=== PATIENT | female | born 1940 | race Caucasian/White ===

== ENCOUNTER 2019-07-04 15:49 | Emergency (ER) | payer MEDICARE, OTHER, SELFPAY ==
[2019-07-04] VITALS (7 sets, daily range): BP systolic 144–156; BP diastolic 67–71; PULSE 112–123; RESP 24–28; TEMP 37.4; O2SAT 94–98
--- NOTE | ~2019-07-04 | XR_ITS ---
XR chest 1V portable 07/04/2019 16:33 Indication: Shortness of breath. COPD. Procedure: AP portable chest Comparison: Comparison to multiple prior studies sequentially, with oldest reviewed study dated 09/10. Findings: Shallow inspiration. Cardiomegaly with interstitial edema. No pleural effusion or pneumotho rax. No acute osseous abnormality. Impression: 1: Cardiomegaly with interstitial edema. Reviewed, dictated and finalized at location A. ECTIONAL FACILITY PSYCHIATRIST Impression: 1: Cardiomegaly with interstitial edema.
--- NOTE | 2019-07-04 16:04 | ECG_ITS ---
Measurements Intervals [place] Rate: 121 P: 63 DC: 152 QRS: 20 QRSD: 135 T: 135 QT: 332 QTc: 473 Interpretive Statements SINUS TACHYCARDIA LEFT BUNDLE BRANCH BLOCK BASELINE ARTIFACT- I, II, III, AVR, AVL, AVF ABNORMAL ECG Electronically Signed On 07-05-2019 8:09:49 DIGITAL CARTOGRAPHIC TECHNICIAN by Humphrey Cobb D.O.
--- NOTE | 2019-07-04 16:07 | ED.SOB ---
HPI - SOB/Dyspnea General Chief Complaint: Shortness of Breath/Dyspnea Stated Complaint: Ambulance Time Seen by Provider: 07/04/19 15:50 Source: patient, EMS and RN notes reviewed Mode of arrival: EMS History of Present Illness HPI Narrative: Karley is a 78-year-old female patient. She is a resident at the local half[facility]way. She is brought to the emergency room from the half-way by ambulance. She has had shortness of breath today.Dr Raymond had ordered a nebulizer treatment on her. She received that and then she was sent over to the emergency room. She denies any chest pain. There is no history of fever. She has history of COPD. 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 She denies history of DC. She has history of diabetes. She has history of hypertension. She has had a cholecystectomy and appendectomy. She has had right forearm surgery for fracture. This got infected and she had to have skin graft done. There is no history of abdominal pain. No history of nausea or vomiting. No history of diarrhea. at night uses a BiPAP machine at the half-way. MD elicited complaint: shortness of breath, cough and chest pain Pertinent past history: COPD and diabetes Onset (ago): hour(s) ( Since this morning) Context: other ( no history of fever. Has history of COPD and pneumonectomy.) Timing: constant Severity: moderate Exacerbating factors: exertion Relieving factors: oxygen Known history of: COPD and other ( Pneumonectomy for histoplasmosis at [facility] in 1975) Associated symptoms: wheezing and other ( no chest pain) Treatment prior to arrival: oxygen and bronchodilator Related Data Home Medications Medication Instructions Recorded Confirmed [id number] calcium-B6 1 tablet PO DAILY 07/04/19 07/04/19 [Folbic RF] acetaminophen 650 mg PO Q4H PRN 07/04/19 07/04/19 alum-mag hydroxide-simeth [Maalox 10 ml PO Q4H PRN 07/04/19 07/04/19 Advanced] aspirin [Adult Aspirin Regimen] 81 mg PO DAILY 07/04/19 07/04/19 atorvastatin 20 mg PO HS 07/04/19 07/04/19 azithromycin 250 mg PO DAILY 07/04/19 07/04/19 bisacodyl 10 mg UT DAILY PRN 07/04/19 07/04/19 budesonide 2 ml INHALATION BID 07/04/19 07/04/19 cholecalciferol (vitamin D3) 1,000 unit PO QAM 07/04/19 07/04/19 duloxetine 90 mg PO DAILY 07/04/19 07/04/19 fluticasone propion-salmeterol 1 inh INHALATION BID 07/04/19 07/04/19 [Advair Diskus] furosemide [Lasix] 40 mg PO TID 07/04/19 07/04/19 gabapentin 300 mg PO BID 07/04/19 07/04/19 hydrocodone-acetaminophen 1 tablet PO BID 07/04/19 07/04/19 hydrocodone-acetaminophen 1 tablet PO Q4H PRN 07/04/19 07/04/19 insulin aspart U-100 [Novolog 20 unit SUBCUT 07/04/19 07/04/19 Flexpen U-100 Insulin] insulin glargine [Basaglar KwikPen 80 unit SUBCUT 07/04/19 07/04/19 U-100 Insulin] ipratropium-albuterol 3 ml INHALATION Q4H 07/04/19 07/04/19 ipratropium-albuterol 3 ml INHALATION Q6H PRN 07/04/19 07/04/19 ipratropium-albuterol [Combivent 1 puff INHALATION Q6H PRN 07/04/19 07/04/19 Respimat] ipratropium-albuterol [Combivent 1 puff INHALATION QID 07/04/19 07/04/19 Respimat] isosorbide mononitrate 30 mg PO DAILY 07/04/19 07/04/19 latanoprost 1 drp OPHTHALMIC (EYE) HS 07/04/19 07/04/19 levothyroxine 175 mcg PO DAILY 07/04/19 07/04/19 lorazepam 0.5 mg PO BID 07/04/19 07/04/19 melatonin 3 mg PO HS PRN 07/04/19 07/04/19 memantine [Namenda] 5 mg PO BID 07/04/19 07/04/19 menthol [[place] Cough Drops] 7.6 mg MUCOUS MEMBRANE Q2H PRN 07/04/19 07/04/19 montelukast 10 mg PO DAILY 07/04/19 07/04/19 ev-jq-WU-vit L-athxg-etg-coQ10 1 cap PO DAILY 07/04/19 07/04/19 [Daily Multivitamin] ondansetron 4 mg PO Q8H PRN 07/04/19 07/04/19 peg 400-propylene glycol [Systane 1 drp OPHTHALMIC (EYE) BID PRN 07/04/19 07/04/19 Ultra] potassium chloride 20 meq PO DAILY 07/04/19 07/04/19 sennosides-docusate sodium [Senna 1 tab-cap PO DAILY 07/04/19 07/04/19 Plus] tramadol 50 mg PO Q6H PRN
[2019-07-04] MEDS: IPRATROPIUM 0.5 MG/ALBUTEROL SULFATE 2.5 MG AMPUL.NEB 3 ML INHALATION ×2 (16:15→18:17)
[2019-07-04] MEDS: methylPREDNISolone SOD SUCC 125 MG VIAL 60 MG IV PUSH (16:17)
[2019-07-04 16:37] LABS: Basophils Absolute Auto 0.01 K/mm3 (0.00-0.10); Basophils Percent Auto 0.1 % (0.0-1.0); Eosinophils Absolute Auto 0.13 K/mm3 (0.02-0.50); Hematocrit 39.5 % (35.0-42.0); Hemoglobin 12.4 g/dL (11.7-13.8); Immature Granulocyte Absolute 0.04 K/mm3 (0.00-0.00); Immature Granulocyte Percent A 0.3 % (0.0-0.0); Lymphocytes Absolute Auto 1.38 K/mm3 (1.10-4.50); Mean Corpuscular HGB Conc 31.4 g/dL (32.0-36.0); Mean Corpuscular Volume 95.6 fL (78.0-102.0); Mean Platelet Volume 11.7 fl (9.2-11.8); Monocytes Absolute Auto 0.74 K/mm3 (0.10-0.90); Monocytes Percent Auto 5.9 % (2.0-11.0); Neutrophils Absolute Auto 10.2 K/mm3 (1.7-7.2); Neutrophils Percent Auto 81.7 % (50.0-70.0); Platelet Count Result 150 K/mm3 (150-420); Red Blood Count 4.13 M/mm3 (4.20-5.40); Red Cell Distribution Width 13.9 % (11.6-14.4); White Blood Count 12.5 K/mm3 (4.8-10.8)
[2019-07-04 16:49] LABS: Alanine Aminotransferase 32 U/L (14-59); Albumin Level 3.1 g/dL (3.4-5.0); Alkaline Phosphatase 134 U/L (46-116); Anion Gap 10.1 mmol/L (7-16); Aspartate Amino Transferase 26 U/L (15-37); Bilirubin,Total 0.4 mg/dL (0.00-1.00); Blood Urea Nitrogen 21 mg/dL (7-18); Calcium 9.5 mg/dL (8.5-10.1); Carbon Dioxide 34 mmol/L (21-32); Chloride 104 mmol/L (98-108); Estimated CRCL calculation 47 ml/min; Estimated Glomerular Filt Rate 43; Glucose 247 mg/dL (70-99); Osmolality Calculated 309 mOsm/kg (285-295); Potassium 4.1 mmol/L (3.5-5.1); Sodium 144 mmol/L (136-145); Total Protein 7.2 g/dL (6.4-8.2)
[2019-07-04 16:51] LABS: Partial Thromboplastin Time 28.6 SEC (22.3-31.6); Prothrombin Time 10.2 Seconds (9.64-11.0)
[2019-07-04 16:52] LABS: D Dimer 0.99 mg/L (0.19-0.50)
[2019-07-04 17:00] LABS: BNP 14.4 pg/mL (0-100)
--- NOTE | 2019-07-04 17:17 | PC.NURSE ---
Dr. Massey in speaking with pt and pts family
--- NOTE | 2019-07-04 17:36 | PC.NURSE ---
Pt resting on stretcher, son at bedside.
[2019-07-04] MEDS: ENOXAPARIN 100 MG/ML SYRINGE 120 MG SUB-Q (18:13)
--- NOTE | 2019-07-04 18:55 | PC.NURSE ---
Pt [facility] in [facility] from the [facility] with rosalio lift. Pt taken back to prison via wheelchair and prison staff.
--- NOTE | 2019-07-05 11:54 | PC.NURSE ---
Appointment for pts v/q scan scheduled for tomorrow at 0800 and to have pt arrive at 0700. group home contacted. spoke with Li to make aware of time for test.
== END 2019-07-04 18:55 ==
PROVIDERS: Emergency Provider Surgery; PCP Family Medicine
DX: J44.9 Chronic obstructive pulmonary disease, unspecified (principal); R79.1 Abnormal coagulation profile
CPT/HCPCS: 36415; 36600; 71045; 80053; 83735; 83880; 85025; 85380; 85610; 85730; 87040; 93005; 96372; 96374; 99284; J1650; J2930

== ENCOUNTER 2019-07-06 06:57 | Outpatient (CLI) | payer MEDICARE, OTHER, SELFPAY | END 2019-07-06 06:58 | disposition home or self-care (01) | PROVIDERS: PCP Family Medicine; Visit Provider Family Medicine | DX: Z53.8 Procedure and treatment not carried out for other reasons (principal) | CPT/HCPCS: 99199 ==

== ENCOUNTER 2019-07-06 15:44 | Outpatient (CLI) | payer MEDICARE, OTHER, SELFPAY ==
--- NOTE | ~2019-07-06 | NM_ITS ---
EXAMINATION: NM lung vent and perfusion DATE: 07/06/2019 17:56 INDICATION: Shortness of breath. Chest pain. TECHNIQUE: 25 mCi xenon-133 by inhalation and 4.5 mCi Tc-99m MAA by intravenous route. Scintigraphic images of the chest were obtained. COMPARISON: Chest radiograph dated 07/06/2019 FINDINGS: There is asymmetric decreased radiotracer uptake in the right lung relative to the left on the ventil ation images. There is mild bilateral retention of radiotracer activity consistent with at least mild obstructive pulmonary disease. Identical pattern of diffuse mildly reduced activity throughout the r ight lung relative to the left on the perfusion images. Subtle small perfusion defect at the lateral right lower lung zone corresponding to a small radiographic opacity on the chest radiograph. Images o n the ventilation portion of the study or to noise 2 assess whether there is a similar subtle matched ventilation defect. No other perfusion defects appreciated. IMPRESSION: 1. Intermediate probability for pulmonary embolism with single small matched perfusion defect in the right lung corresponding to a radiographic opacity. Reviewed, dictated and finalized at location A. MACEUTICAL PHYSICIAN IMPRESSION: 1. Intermediate probability for pulmonary embolism with single small matched p erfusion defect in the right lung corresponding to a radiographic opacity.
--- NOTE | ~2019-07-06 | XR_ITS ---
XR chest 1V DATE: 07/06/2019 16:39 INDICATION: Chest pain, shortness of breath. Elevated d-dimer. TECHNIQUE: AP chest COMPARISON: 07/04/2019 portable AP chest FINDINGS: Elevated right diaphragm is again noted. There is infiltrate and/atelectasis in the lower l vadim zones bilaterally. Cardiomegaly. Aortic calcification. Very prominent diffuse osteopenia. IMPRESSION: Cardiomegaly Bibasilar infiltrate and/atelectasis Severe osteopenia Reviewed, dictated and finalized at location B. NGUAL MANAGER
== END 2019-07-06 15:45 | disposition home or self-care (01) ==
PROVIDERS: PCP Family Medicine; Visit Provider Family Medicine
DX: R06.02 Shortness of breath (principal); R91.8 Other nonspecific abnormal finding of lung field; I51.7 Cardiomegaly; M85.88 Other specified disorders of bone density and structure, other site
CPT/HCPCS: 71045; 78582; A9540; A9558

== ENCOUNTER 2019-07-17 19:57 | Inpatient (IN) | payer MEDICARE, OTHER, SELFPAY ==
--- NOTE | ~2019-07-17 | XR_ITS ---
EXAMINATION: XR chest 1V portable INDICATION: Shortness of breath and cough TECHNIQUE: Portable AP chest at 2018 hours COMPARISON: 07/06/2019 FINDINGS: There is elevation of the right hemidiaphragm. Scarring or atelectasis is seen in the right midlung zone. The lungs are free of acute opacities. No pleural effusion or pneumothorax is identifi ed. The cardiomediastinal silhouette is stable. IMPRESSION: 1. No acute cardiopulmonary abnormality. Reviewed, dictated and finalized at location A. ECTOR MOTOR VEHICLES
[2019-07-17 19:57] VITALS: BP 156/81; PULSE 125; RESP 32; TEMP 38.2; O2SAT 98
--- NOTE | 2019-07-17 20:10 | ED.SOB ---
HPI - SOB/Dyspnea General Chief Complaint: Shortness of Breath/Dyspnea Stated Complaint: amb History of Present Illness HPI Narrative: This 78-year-old resident of [facility] has diabetes, morbid obesity and COPD. Staff relay a hx of acute shortness of breath and occasional cough which starated several hours ago, treated with albuterol nebulizer. (Son states she actually had some SOB last PM). She was noted to have wheezing on exam, warm with a pulse of 120 and pulse ox 95% 95% on 4 L. She had dyspnea 13 days ago associated with a D-dimer 0f 0.99 tx with anticoags until diagnostic study was performed; V/Q scan which showed intermediate probability of PE. She was taken off of anticoagulants but kept on azithromycin. Her son states she is considered to be in palliative care, with DNR documented. She takes Lasix 40 mg TID. There is no hx of CHF; 07/04/2019 BNP less than 20. Because of his dyspnea and decreased LOC she had difficulty answering questions. Related Data Home Medications Medication Instructions Recorded Confirmed [id number] calcium-B6 1 tablet PO DAILY 07/04/19 07/17/19 [Folbic RF] acetaminophen 650 mg PO Q4H PRN 07/04/19 07/17/19 alum-mag hydroxide-simeth [Maalox 10 ml PO Q4H PRN 07/04/19 07/17/19 Advanced] aspirin [Adult Aspirin Regimen] 81 mg PO DAILY 07/04/19 07/17/19 atorvastatin 20 mg PO HS 07/04/19 07/17/19 bisacodyl 10 mg IN DAILY PRN 07/04/19 07/17/19 budesonide 2 ml INHALATION BID 07/04/19 07/17/19 cholecalciferol (vitamin D3) 1,000 unit PO QAM 07/04/19 07/17/19 duloxetine 90 mg PO DAILY 07/04/19 07/17/19 fluticasone propion-salmeterol 1 inh INHALATION BID 07/04/19 07/17/19 [Advair Diskus] furosemide [Lasix] 40 mg PO TID 07/04/19 07/17/19 gabapentin 300 mg PO BID 07/04/19 07/17/19 hydrocodone-acetaminophen 1 tablet PO BID 07/04/19 07/17/19 hydrocodone-acetaminophen 1 tablet PO Q4H PRN 07/04/19 07/17/19 insulin aspart U-100 [Novolog 20 unit SUBCUT AC 07/04/19 07/17/19 Flexpen U-100 Insulin] insulin glargine [Basaglar KwikPen 80 unit SUBCUT HS 07/04/19 07/17/19 U-100 Insulin] ipratropium-albuterol 3 ml INHALATION Q6H PRN 07/04/19 07/17/19 ipratropium-albuterol 3 ml INHALATION QID 07/04/19 07/17/19 ipratropium-albuterol [Combivent 1 puff INHALATION Q6H PRN 07/04/19 07/17/19 Respimat] ipratropium-albuterol [Combivent 1 puff INHALATION QID 07/04/19 07/17/19 Respimat] isosorbide mononitrate 30 mg PO DAILY 07/04/19 07/17/19 latanoprost 1 drp OPHTHALMIC (EYE) HS 07/04/19 07/17/19 levothyroxine 175 mcg PO DAILY 07/04/19 07/17/19 lorazepam 0.5 mg PO BID 07/04/19 07/17/19 melatonin 3 mg PO HS PRN 07/04/19 07/17/19 memantine [Namenda] 5 mg PO BID 07/04/19 07/17/19 menthol [[place] Cough Drops] 7.6 mg MUCOUS MEMBRANE Q2H PRN 07/04/19 07/17/19 montelukast 10 mg PO DAILY 07/04/19 07/17/19 yv-sl-GS-vit V-cprbm-oot-coQ10 1 cap PO DAILY 07/04/19 07/17/19 [Daily Multivitamin] ondansetron 4 mg PO Q8H PRN 07/04/19 07/17/19 peg 400-propylene glycol [Systane 1 drp OPHTHALMIC (EYE) BID PRN 07/04/19 07/17/19 Ultra] potassium chloride 20 meq PO DAILY 07/04/19 07/17/19 sennosides-docusate sodium [Senna 1 tab-cap PO DAILY 07/04/19 07/17/19 Plus] tramadol 50 mg PO Q6H PRN 07/04/19 07/17/19 umeclidinium [Incruse Ellipta] 62.5 mcg INHALATION DAILY 07/04/19 07/17/19 [id number] calcium-B6 1 tablet PO DAILY 07/17/19 07/17/19 [Folbic RF] peg 400-propylene glycol (PF) 1 drp OPHTHALMIC (EYE) BID 07/17/19 07/17/19 [Systane Ultra (PF)] Allergies Allergy/AdvReac Type Severity Reaction Status Date / Time iodine Allergy Unknown Unknown Verified 07/04/19 16:09 losartan Allergy Unknown Unknown Verified 07/04/19 16:09 shrimp Allergy Unknown Verified 07/04/19 16:09 Contrast Media Allergy Unknown Uncoded 07/04/19 16:09 Mushroom Allergy Unknown Uncoded 07/04/19 16:09 Review of Systems Review of Systems: Narrative: Unable to obtain ROS because of depressed mental status. ROS unob
[2019-07-17] MEDS: IPRATROPIUM 0.5 MG/ALBUTEROL SULFATE 2.5 MG AMPUL.NEB 3 ML INHALATION ×2 (20:30→21:03)
[2019-07-17] MEDS: methylPREDNISolone SOD SUCC 40 MG VIAL 80 MG IV PUSH (20:40)
[2019-07-17 20:45] VITALS: BP 138/78; PULSE 125; RESP 26; O2SAT 100
[2019-07-17 20:52] LABS: Basophils Absolute Auto 0.02 K/mm3 (0.00-0.10); Basophils Percent Auto 0.2 % (0.0-1.0); Eosinophils Absolute Auto 0.05 K/mm3 (0.02-0.50); Eosinophils Percent Auto 0.5 % (1.0-6.0); Hematocrit 37.4 % (35.0-42.0); Hemoglobin 11.6 g/dL (11.7-13.8); Immature Granulocyte Absolute 0.06 K/mm3 (0.00-0.00); Immature Granulocyte Percent A 0.7 % (0.0-0.0); Lymphocytes Absolute Auto 0.43 K/mm3 (1.10-4.50); Lymphocytes Percent Auto 4.7 % (18.0-42.0); Mean Corpuscular Hemoglobin 29.7 pg (27.0-31.0); Mean Corpuscular Volume 95.7 fL (78.0-102.0); Mean Platelet Volume 11.5 fl (9.2-11.8); Monocytes Absolute Auto 0.53 K/mm3 (0.10-0.90); Monocytes Percent Auto 5.7 % (2.0-11.0); Neutrophils Absolute Auto 8.1 K/mm3 (1.7-7.2); Neutrophils Percent Auto 88.2 % (50.0-70.0); Platelet Count Result 150 K/mm3 (150-420); Red Blood Count 3.91 M/mm3 (4.20-5.40); Red Cell Distribution Width 14.1 % (11.6-14.4); White Blood Count 9.2 K/mm3 (4.8-10.8)
--- NOTE | 2019-07-17 20:53 | ECG_ITS ---
Measurements Intervals [place] Rate: 125 P: 57 [place]: 135 QRS: 10 QRSD: 141 T: 144 QT: 326 QTc: 470 Interpretive Statements SINUS TACHYCARDIA LEFT BUNDLE BRANCH BLOCK BASELINE ARTIFACT- I, II, III, AVR, AVL, AVF, V4-V6 ABNORMAL ECG COMPARED TO ECG 07/04/2019 16:25:05 NO SIGNIFICANT CHANGES Electronically Signed On 07-18-2019 11:35:06 AUTOMATED TELLER MANAGER by Humphrey Cobb D.O.
[2019-07-17 21:09] LABS: Alanine Aminotransferase 34 U/L (14-59); Albumin Level 3.5 g/dL (3.4-5.0); Alkaline Phosphatase 145 U/L (46-116); Anion Gap 10.4 mmol/L (7-16); Aspartate Amino Transferase 21 U/L (15-37); Bilirubin,Total 0.3 mg/dL (0.00-1.00); Blood Urea Nitrogen 23 mg/dL (7-18); Calcium 9.3 mg/dL (8.5-10.1); Carbon Dioxide 37 mmol/L (21-32); Chloride 104 mmol/L (98-108); Estimated Glomerular Filt Rate 44; Glucose 229 mg/dL (70-99); Osmolality Calculated 314 mOsm/kg (285-295); Potassium 4.4 mmol/L (3.5-5.1); Sodium 147 mmol/L (136-145); Total Protein 6.6 g/dL (6.4-8.2)
[2019-07-17 21:13] LABS: Lactic Acid 1.6 mmol/L (0.4-2.0)
[2019-07-17 21:20] LABS: BNP 20.4 pg/mL (0-100)
[2019-07-17 21:30] VITALS: BP 152/77; PULSE 127; RESP 32; O2SAT 98
[2019-07-17 21:35] LABS: Troponin I < 0.02 ng/mL (0.00-0.056)
[2019-07-17 21:58] LABS: D Dimer 1.69 mg/L (0.19-0.50)
[2019-07-17 22:05] LABS: Influenza Control Valid (Valid)
[2019-07-17] MEDS: ALBUTEROL SULFATE NEB 2.5 MG/3 ML INH INHALATION (22:13)
[2019-07-17 22:26] LABS: HCO3 VBG 31.9 mEq/l (24.0-30.0); PCO2 VBG 62.7 mmHg (42.0-48.0); PO2 VBG 40.4 mmHg (35.0-45.0); pH VBG 7.33 (7.33-7.43)
[2019-07-17 22:27] LABS: Device NASAL CANNULA
[2019-07-17 22:30] VITALS: BP 151/81; PULSE 126; RESP 32; O2SAT 98
--- NOTE | 2019-07-17 22:47 | PC.NURSE ---
Son returned from [place] with pt's C-pap machine per Dr Sanchez request.
[2019-07-17 23:04] VITALS: BP 151/80; PULSE 124; RESP 32; O2SAT 97
[2019-07-18] VITALS (12 sets, daily range): BP systolic 122–150; BP diastolic 55–67; PULSE 77–114; RESP 20–28; TEMP 35.5–36.4; O2SAT 90–95; BMI 47.0
[2019-07-18] MEDS: SODIUM CHLORIDE 0.9% IV 1,000 ML 100 ML IV CONT (01:07)
[2019-07-18] MEDS: OSELTAMIVIR PHOSPHATE 75 MG CAP PO ×2 (01:16→10:15)
--- NOTE | 2019-07-18 01:17 | PC.NURSE ---
`1/2 given per order, Tamiflu.
[2019-07-18] MEDS: IPRATROPIUM 0.5 MG/ALBUTEROL SULFATE 2.5 MG AMPUL.NEB 3 ML INHALATION ×4 (02:03→18:07)
[2019-07-18] MEDS: methylPREDNISolone SOD SUCC 125 MG VIAL 80 MG IV PUSH (04:17)
[2019-07-18] MEDS: levoFLOXacin 500 MG/D5W 100 ML 500 MG/100 ML BAG 100 MG IVPB (04:26)
--- NOTE | 2019-07-18 05:40 | PC.NURSE ---
0330 [facility] pharmacy called and made recommendations that pt's levaquin order be changed to every 48 hrs instead of every 24 hrs due to kidney function. Attempted to talk to Dr. Sanchez but he was with a patient. Message left with [employer].
--- NOTE | 2019-07-18 06:21 | PC.NURSE ---
1369 Dr. Sanchez notified of tamiflu being unavailable in the 30 mg dose. He requested that we talk to pharmacy for their recommendations.
[2019-07-18] MEDS: LEVOTHYROXINE SODIUM 100 MCG TABLET 175 MCG PO (06:23)
--- NOTE | 2019-07-18 06:27 | PC.NURSE ---
175mcg po of Levothyroxine given @ this time order.
--- NOTE | 2019-07-18 06:40 | PC.NURSE ---
0005 [facility] notified of unavailability of tamiflu 30 mg. Pharmacist said tamiflu 75 mg capsule can be opened to give 1/2 dose.
[2019-07-18 07:23] LABS: Glucose Point of Care 344 (65-105)
--- NOTE | 2019-07-18 08:03 | PC.NURSE ---
Oriented to self, re orirented to hospital surrounding, cpap remains in place on 4L, states is feeling better, no audible wheezing noted, no use of right arm due to previous fx elbow, does state feeling better,
[2019-07-18] MEDS: BUDESONIDE RESPULE NEB 0.5 MG/2 ML AMP 1 MG INHALATION (09:11)
[2019-07-18] MEDS: SALMET XINAFT/FLUTIC PROPIN 250 MCG/50 MCG INH CAP 1 PUFF INHALATION ×2 (09:51→17:01)
[2019-07-18] MEDS: ENOXAPARIN 40 MG/0.4 ML SYRINGE SUB-Q (09:52)
[2019-07-18] MEDS: CHOLECALCIFEROL 1,000 UNIT TABLET 1000 UNITS PO (09:53)
[2019-07-18] MEDS: BENZONATATE 100 MG CAPSULE 200 MG PO ×3 (09:53→17:00)
[2019-07-18] MEDS: DULOXETINE HCL 30 MG CAPSULE.DR 90 MG PO (09:55)
[2019-07-18] MEDS: MONTELUKAST SODIUM 10 MG TABLET PO (09:57)
[2019-07-18] MEDS: FUROSEMIDE 40 MG TABLET PO ×2 (09:57→17:02)
[2019-07-18] MEDS: LORAZEPAM 0.5 MG TABLET PO ×2 (09:57→17:02)
[2019-07-18] MEDS: THERAPEUTIC MULTIVITAMINS/MINERALS TAB (*BKC) 1 TABLET PO (09:57)
[2019-07-18] MEDS: MEMANTINE 5 MG TABLET PO ×2 (09:57→17:02)
[2019-07-18] MEDS: ASPIRIN 81 MG ENTERIC TABLET PO (09:58)
[2019-07-18] MEDS: GABAPENTIN 300 MG CAPSULE PO ×2 (09:58→17:02)
[2019-07-18] MEDS: POTASSIUM CHLORIDE 20 MEQ TABLET PO (09:58)
[2019-07-18] MEDS: SENNA/DOCUSATE SODIUM TABLET 1 TAB PO (10:13)
--- NOTE | 2019-07-18 10:23 | PC.NURSE ---
Placed on 4L NC while taking medication, takes in applesauce and tolerated well, repositioned to back for meds, placed cpap back on patient after meds taken, tolerated well, takes fluids as offerred
--- NOTE | 2019-07-18 11:07 | PM.IMHP ---
H&P: HPI History of Present Illness Chief complaint: amb Narrative: Karley Kong is a 78 year old female resides at the [facility]. patient was admitted overnight for shortness of breath and dyspnea. Patient past medical history hypertension right forearm fracture diabetes to, COPD pulmonary fibrosis, peripheral edema according to son he believes that she has been diagnosed with congestive heart failure but cannot recall when the last echo was completed. Patient is palliative care he does not care to complete of echo to determine the status of her congestive heart failure. According to her son he was notified by staff the patient shortness of breath had increasing And worsened he also noted that it appeared that she had a bit of confusion yesterday. He also informed me that she has a history of UTIs, which causes her to be confused. she does have a history of chronic shortness of breath. she is being admitted for influenza A. and COPD exacerbation. Due to her GFR she will be given 30 mg of Tamiflu b.i.d.. she will also receive antibiotics and steroid due to her history of COPD. While in the ED a chest x-ray was completed results unremarkable, EKG shows sinus tach heart rate in 121. she also had an elevated D-dimer. According to son iin the past her D-dimer has been elevated.due to her allergic reaction to dyes she had a V/Q scan completed On July 06, 2019 and it indicated Intermediate probability for pulmonary embolism with single small matched perfusion defect in the right lung corresponding to a radiographic opacity. According to her son her PCP noted that she no longer needed to be on Lovenox. I will contact Dr. Wade on Saturday to update him on patient's status and obtain more information. Her son did decline another V/Q scan and asked that I contact Dr. Wade for his opinion. she will continue antibiotics, Solu-Medrol , and treatment and tamiflo. Patient able to tolerate all meals , slept well . Patient denies SOB, CP, palpitation, extremity numbness, lightheadness, dizziness, constipation, diarrhea, or chills or fever. she does note that when she coughs her her chest hurts due to her coughing but denies chest pain. Review of Systems Constitutional: Constitutional: Denies headache(s), Reports lethargy and Reports weakness Cardiovascular: Cardiovascular: Denies chest pain at rest, Denies chest pain with activity, Reports pedal edema ( bilateral), Reports leg edema ( bilateral ), Reports dyspnea, Reports dyspnea on exertion and Reports orthopnea Respiratory: Respiratory: Reports chest congestion, Reports cough, Reports pain with cough and Reports dyspnea Gastrointestinal: Gastrointestinal: Denies abdominal pain, Denies constipation, Denies diarrhea, Denies nausea and Denies vomiting Genitourinary: Genitourinary: Reports no additional female genitourinary complaints Musculoskeletal: Musculoskeletal: Reports muscle weakness Integumentary/Breasts: Skin/Breast: Reports swelling ( bilateral upper and lower extremities) Neurologic: Reports confusion ( occasional confusion about locatio), Denies vertigo, Denies dizziness and Denies headache(s) [facility] Past Medical History Medical History Histoplasmosis Hypertension Right forearm fracture Type 2 diabetes mellitus Surgical History Surgical History H/O pneumonectomy H/O: hysterectomy History of appendectomy Hx of cholecystectomy Family History Family History (Updated 07/18/19 @ 00:18 by Bianca Thapa LPN) Father , father of histoplasmosis Hypertension Mother , mother had diabetes Hypertension Other Diabetes mellitus Social History Social History Years smoked: 1 Smoking status: Former smoker Tobacco type: cigarettes Second hand tobacco smoke exposure:
[2019-07-18 11:50] LABS: Glucose Point of Care 334 (65-105)
--- NOTE | 2019-07-18 12:52 | PC.NURSE ---
receiving neb treatment, audible wheeze noted, po maintains 96% on 4L NC
--- NOTE | 2019-07-18 13:07 | PC.NURSE ---
Finished lunch, bed change completed, cpap re applied
[2019-07-18] MEDS: methylPREDNISolone SOD SUCC 125 MG VIAL IV PUSH ×2 (14:01→21:10)
--- NOTE | 2019-07-18 14:38 | PC.NURSE ---
Son here to visit, switched from cpap to nasal cannula to visit with son
[2019-07-18 16:48] LABS: Glucose Point of Care 301 (65-105)
[2019-07-18] MEDS: BUDESONIDE RESPULE NEB 0.5 MG/2 ML AMP INHALATION (18:08)
--- NOTE | 2019-07-18 18:12 | PC.NURSE ---
audible wheeze at times, neb treatment given
[2019-07-18] MEDS: INSULIN GLARGINE (*BKC) 100 UNITS/ML 80 UNITS SUB-Q (21:09)
[2019-07-18] MEDS: ATORVASTATIN 10 MG TABLET 20 MG PO (21:09)
[2019-07-18] MEDS: LATANOPROST 0.005% OP SOLN 2.5 ML BTL 1 DROP EACH EYE (21:10)
[2019-07-18 21:49] LABS: Glucose Point of Care 352 (65-105)
[2019-07-18 22:04] LABS: Add Urine Microscopic? YES; Appearance Urine Clear (Clear); Bilirubin Urine Negative (Negative); Blood Urine Trace-Intact (Negative); Color Urine Yellow (Yellow); Glucose Urine UA 3+ (Negative); Ketones Urine Negative (Negative); Leukocyte Esterase Ur Negative (Negative); Nitrate Urine Negative (Negative); Protein Urine Negative (Negative); Urobilinogen Urine 0.2 mg/dL (0.2-1.0); pH Urine 5.5 (5.0-8.0)
[2019-07-18 22:05] LABS: Bacteria Urine Trace /hpf; Squamous Epithelial Cell Urine Few /hpf (Few); WBC Urine None seen /hpf (0-3)
[2019-07-19] VITALS (9 sets, daily range): BP systolic 128–149; BP diastolic 63–73; PULSE 89–101; RESP 20–24; TEMP 36.1–36.3; O2SAT 93–95
[2019-07-19] MEDS: IPRATROPIUM 0.5 MG/ALBUTEROL SULFATE 2.5 MG AMPUL.NEB 3 ML INHALATION ×3 (05:36→18:03)
[2019-07-19] MEDS: methylPREDNISolone SOD SUCC 125 MG VIAL IV PUSH (05:37)
[2019-07-19] MEDS: levoFLOXacin 250 MG/D5W 50 ML 250 MG/50 ML BAG 50 MG IVPB (05:37)
[2019-07-19] MEDS: LEVOTHYROXINE SODIUM 100 MCG TABLET 175 MCG PO (05:37)
[2019-07-19] MEDS: BUDESONIDE RESPULE NEB 0.5 MG/2 ML AMP INHALATION ×2 (05:39→18:03)
[2019-07-19 05:42] LABS: Hematocrit 33.1 % (35.0-42.0); Hemoglobin 10.5 g/dL (11.7-13.8); Immature Platelet Fraction Pct 3.8 % (1.0-7.0); Mean Corpuscular HGB Conc 31.7 g/dL (32.0-36.0); Mean Corpuscular Hemoglobin 29.4 pg (27.0-31.0); Mean Corpuscular Volume 92.7 fL (78.0-102.0); Platelet Count Result 131 K/mm3 (150-420); Red Blood Count 3.57 M/mm3 (4.20-5.40); Red Cell Distribution Width 13.7 % (11.6-14.4); White Blood Count 3.8 K/mm3 (4.8-10.8)
[2019-07-19 05:55] LABS: Alanine Aminotransferase 40 U/L (14-59); Alkaline Phosphatase 111 U/L (46-116); Anion Gap 9.8 mmol/L (7-16); Aspartate Amino Transferase 25 U/L (15-37); Bilirubin,Total 0.2 mg/dL (0.00-1.00); Blood Urea Nitrogen 30 mg/dL (7-18); Calcium 8.7 mg/dL (8.5-10.1); Carbon Dioxide 35 mmol/L (21-32); Chloride 106 mmol/L (98-108); Estimated CRCL calculation 47 ml/min; Estimated Glomerular Filt Rate 51; Glucose 357 mg/dL (70-99); Osmolality Calculated 324 mOsm/kg (285-295); Potassium 3.8 mmol/L (3.5-5.1); Sodium 147 mmol/L (136-145)
[2019-07-19 06:03] LABS: BNP 112 pg/mL (0-100)
[2019-07-19 07:21] LABS: Glucose Point of Care 331 (65-105)
--- NOTE | 2019-07-19 08:03 | PC.NURSE ---
Resting with HOB elevated, cpap removed and placed on cannula oxygen for breakfast, reports is feeling better, wheezing slightly less, noted only on expiration this am
[2019-07-19] MEDS: ENOXAPARIN 40 MG/0.4 ML SYRINGE SUB-Q (08:59)
[2019-07-19] MEDS: SALMET XINAFT/FLUTIC PROPIN 250 MCG/50 MCG INH CAP 1 PUFF INHALATION ×2 (08:59→16:55)
[2019-07-19] MEDS: MEMANTINE 5 MG TABLET PO ×2 (09:01→16:56)
[2019-07-19] MEDS: SENNA/DOCUSATE SODIUM TABLET 1 TAB PO (09:01)
[2019-07-19] MEDS: CHOLECALCIFEROL 1,000 UNIT TABLET 1000 UNITS PO (09:01)
[2019-07-19] MEDS: BENZONATATE 100 MG CAPSULE 200 MG PO ×3 (09:01→16:55)
[2019-07-19] MEDS: THERAPEUTIC MULTIVITAMINS/MINERALS TAB (*BKC) 1 TABLET PO (09:02)
[2019-07-19] MEDS: MONTELUKAST SODIUM 10 MG TABLET PO (09:02)
[2019-07-19] MEDS: POTASSIUM CHLORIDE 20 MEQ TABLET PO (09:03)
[2019-07-19] MEDS: LORAZEPAM 0.5 MG TABLET PO ×2 (09:03→16:56)
[2019-07-19] MEDS: GABAPENTIN 300 MG CAPSULE PO ×2 (09:03→16:56)
[2019-07-19] MEDS: OSELTAMIVIR PHOSPHATE 75 MG CAP PO (09:03)
[2019-07-19] MEDS: DULOXETINE HCL 30 MG CAPSULE.DR 90 MG PO (09:04)
[2019-07-19] MEDS: FUROSEMIDE 40 MG TABLET PO ×2 (09:04→16:56)
[2019-07-19] MEDS: ASPIRIN 81 MG ENTERIC TABLET PO (09:13)
--- NOTE | 2019-07-19 10:31 | PM.IMPN ---
Progress Note: A&P Assessment and Plan (1) Acute exacerbation of chronic obstructive pulmonary disease: Code(s): J44.1 - Chronic obstructive pulmonary disease with (acute) exacerbation Status: Acute Assessment and Plan: COPD exacerbation secondary to influenza A - continue nebulizers and and oxygen - patient is on home O2, continue use of home O2 and adjust as needed, monitor oxygen levels as ordered - continue Levaquin Solu-Medrol and Tamiflu -chest x-ray negative -Primary Respiratory Acidosis, Acute, with: Secondary Metabolic Alkalosis - will repeat chest x-ray in the future - will contact PCP On Saturday for more information (2) Influenza A: Code(s): J10.1 - Influenza due to other identified influenza virus with other respiratory manifestations Status: Acute Assessment and Plan: - continue Tamiflu at 1/2 dose due to G FR - the symptoms, continue cough suppressants and Decongestion - CBC in a.m. - patient currently afebrile patient has Tylenol for feve - lactic acid within normal limits (3) D-dimer, elevated: Code(s): R79.89 - Other specified abnormal findings of blood chemistry Status: Acute Assessment and Plan: V/Q scan completed On July 06, 2019 and it indicated Intermediate probability for pulmonary embolism with single small matched perfusion defect in the right lung corresponding to a radiographic opacity - D-dimer 1.69 - will call PCP Saturday to get update on anticoagulation use - will continue Lovenox here (4) DVT prophylaxis: Code(s): Z29.9 - Encounter for prophylactic measures, unspecified Status: Acute Assessment and Plan: continue Lovenox (5) Diabetes mellitus: Code(s): E11.9 - Type 2 diabetes mellitus without complications Status: Acute Assessment and Plan: blood sugars elevated greater than 300 secondary to steroid use - will continue home medication - decrease the amount of steroids - increase sliding scale from low to moderate with hypoglycemic protocol, and Accu-Cheks a.c. HS - continue diabetic diet - will adjust medication as needed (6) Peripheral edema: Code(s): R60.9 - Edema, unspecified Status: Acute Assessment and Plan: according to patient's son patient currently use Lasix t.i.d. for peripheral edema. - will decrease the amount to b.i.d. while inpatient. - patient with 2+ bilateral lower extremity edema and upper bilateral extremity edema (7) History of UTI: Code(s): Z87.440 - Personal history of urinary (tract) infections Status: Acute Assessment and Plan: patient's son noted that patient appeared slightly confused and has had a past history of UTIs and displayed confusion is with her UTIs. - UA negative Subjective Date/time seen: 07/19/19 10:31 patient notes that she feels better ,still continues to have shortness of breath while at rest and auditory wheezing. Patient noted that she slept well overnight and was able to tolerate all her meals. Patient denies , CP, palpitation, extremity numbness, lightheadness, dizziness, constipation, diarrhea, or chills or fever. patient will remain overnight for IV antibiotics, steroids and breathing treatments. Review of Systems Constitutional: Constitutional: Denies headache(s), Reports lethargy and Reports weakness ENT: Denies vertigo, Denies dizziness and Denies headache(s) Cardiovascular: Cardiovascular: Denies chest pain at rest, Denies chest pain with activity, Reports pedal edema ( bilateral), Reports leg edema ( bilateral ), Reports dyspnea, Reports dyspnea on exertion and Reports orthopnea Respiratory: Respiratory: Reports chest congestion, Reports cough, Reports pain with cough, Reports dyspnea and Reports dyspnea on exertion Gastrointestinal: Gastrointestinal: Denies abdominal pain, Denies constipation, Denies diarrhea, Denies nausea and Denies vomiting Genitourinary: Genitourinary: Reports
--- NOTE | 2019-07-19 11:30 | PC.NURSE ---
Son here to visit, less wheezing today, resting comfortable on nasal cannula oxygen
[2019-07-19 11:58] LABS: Glucose Point of Care 353 (65-105)
[2019-07-19] MEDS: methylPREDNISolone SOD SUCC 125 MG VIAL 80 MG IV PUSH ×2 (13:22→21:14)
--- NOTE | 2019-07-19 14:45 | PC.NURSE ---
Resting in bed, denies needs, breathing improved, less distress, less wheezing noted
[2019-07-19 16:52] LABS: Glucose Point of Care 364 (65-105)
--- NOTE | 2019-07-19 18:38 | PC.NURSE ---
turned and repositioned, unable to help much at all, no pain noted, pillows for support
--- NOTE | 2019-07-19 21:10 | PC.NURSE ---
pt cpap applied with oxygen running through at 4L.
[2019-07-19] MEDS: ATORVASTATIN 10 MG TABLET 20 MG PO (21:14)
[2019-07-19] MEDS: INSULIN GLARGINE (*BKC) 100 UNITS/ML 80 UNITS SUB-Q (21:14)
[2019-07-19] MEDS: LATANOPROST 0.005% OP SOLN 2.5 ML BTL 1 DROP EACH EYE (21:15)
[2019-07-19 21:30] LABS: Glucose Point of Care 381 (65-105)
--- NOTE | 2019-07-19 23:18 | PM.EVENT ---
Event Note Event Note Event Note: Admitted yesterday from [facility] with hypoxia, influenza a, a COPD exacerbation with likely community-acquired pneumonia. She states she feels a little bit better today. Incontinent of urine so urine output is not accurately measured. Bilateral weiner expiratory wheezing with modest increased work of breathing. Regular rate and rhythm without murmur. Scant peripheral edema. Currently oxygen requirement more than her typical 3 liters/minute at [place]. continue IV antibiotics, steroids and neb treatments. I have reviewed the chart and examined the patient. Discussed the patient's care with Alena Andino APN and agree with her assessment and plan.
[2019-07-20] VITALS (7 sets, daily range): BP systolic 155–166; BP diastolic 52–70; PULSE 62–88; RESP 20–22; TEMP 35.9–36.2; O2SAT 96–97
[2019-07-20] MEDS: IPRATROPIUM 0.5 MG/ALBUTEROL SULFATE 2.5 MG AMPUL.NEB 3 ML INHALATION ×2 (01:27→05:28)
[2019-07-20] MEDS: ACETAMINOPHEN 500 MG TABLET 1000 MG PO (02:21)
[2019-07-20] MEDS: BUDESONIDE RESPULE NEB 0.5 MG/2 ML AMP INHALATION (05:28)
[2019-07-20] MEDS: levoFLOXacin 250 MG/D5W 50 ML 250 MG/50 ML BAG 50 MG IVPB (05:40)
[2019-07-20] MEDS: LEVOTHYROXINE SODIUM 100 MCG TABLET 175 MCG PO (05:41)
[2019-07-20] MEDS: methylPREDNISolone SOD SUCC 125 MG VIAL 80 MG IV PUSH ×2 (05:41→13:40)
[2019-07-20 06:26] LABS: Hematocrit 34.5 % (35.0-42.0); Mean Corpuscular HGB Conc 31.9 g/dL (32.0-36.0); Mean Corpuscular Hemoglobin 30.1 pg (27.0-31.0); Mean Corpuscular Volume 94.3 fL (78.0-102.0); Mean Platelet Volume 11.8 fl (9.2-11.8); Platelet Count Result 120 K/mm3 (150-420); Red Blood Count 3.66 M/mm3 (4.20-5.40); Red Cell Distribution Width 13.5 % (11.6-14.4); White Blood Count 3.6 K/mm3 (4.8-10.8)
[2019-07-20 06:35] LABS: Blood Urea Nitrogen 30 mg/dL (7-18); Calcium 9.1 mg/dL (8.5-10.1); Carbon Dioxide 38 mmol/L (21-32); Chloride 104 mmol/L (98-108); Estimated CRCL calculation 44 ml/min; Estimated Glomerular Filt Rate 47; Glucose 339 mg/dL (70-99); Osmolality Calculated 319 mOsm/kg (285-295); Sodium 145 mmol/L (136-145)
[2019-07-20 08:26] LABS: Glucose Point of Care 328 (65-105)
[2019-07-20] MEDS: ASPIRIN 81 MG ENTERIC TABLET PO (08:55)
[2019-07-20] MEDS: THERAPEUTIC MULTIVITAMINS/MINERALS TAB (*BKC) 1 TABLET PO (08:55)
[2019-07-20] MEDS: LORAZEPAM 0.5 MG TABLET PO (08:55)
[2019-07-20] MEDS: CHOLECALCIFEROL 1,000 UNIT TABLET 1000 UNITS PO (08:55)
[2019-07-20] MEDS: OSELTAMIVIR PHOSPHATE 75 MG CAP PO (08:56)
[2019-07-20] MEDS: SENNA/DOCUSATE SODIUM TABLET 1 TAB PO (08:56)
[2019-07-20] MEDS: GABAPENTIN 300 MG CAPSULE PO (08:56)
[2019-07-20] MEDS: FUROSEMIDE 40 MG TABLET PO (08:56)
[2019-07-20] MEDS: MONTELUKAST SODIUM 10 MG TABLET PO (08:56)
[2019-07-20] MEDS: BENZONATATE 100 MG CAPSULE 200 MG PO ×2 (08:57→12:57)
[2019-07-20] MEDS: POTASSIUM CHLORIDE 20 MEQ TABLET PO (08:57)
[2019-07-20] MEDS: MEMANTINE 5 MG TABLET PO (08:57)
[2019-07-20] MEDS: ENOXAPARIN 40 MG/0.4 ML SYRINGE SUB-Q (08:57)
[2019-07-20] MEDS: SALMET XINAFT/FLUTIC PROPIN 250 MCG/50 MCG INH CAP 1 PUFF INHALATION (08:57)
[2019-07-20] MEDS: DULOXETINE HCL 30 MG CAPSULE.DR 90 MG PO (08:57)
--- NOTE | 2019-07-20 09:24 | ECG_ITS ---
Measurements Intervals [place] Rate: 95 P: 67 AL: 149 QRS: 61 QRSD: 146 T: 91 QT: 380 QTc: 480 Interpretive Statements SINUS RHYTHM LEFT BUNDLE BRANCH BLOCK ABNORMAL ECG Electronically Signed On 07-20-2019 10:58:16 HEATING ELEMENT BUILDER by Humphrey Cobb D.O.
[2019-07-20 09:37] LABS: BNP 75.1 pg/mL (0-100)
[2019-07-20 09:48] LABS: Troponin I < 0.02 ng/mL (0.00-0.056)
--- NOTE | 2019-07-20 11:44 | PM.DS ---
DS: Diagnosis Admitting Diagnosis Admitting Diagnosis: Chronic obstructive pulmonary disease with (acute) exacerbation Discharge Diagnosis (1) Acute exacerbation of chronic obstructive pulmonary disease: Code(s): J44.1 - Chronic obstructive pulmonary disease with (acute) exacerbation Status: Acute Assessment and Plan: COPD exacerbation secondary to influenza A - continue nebulizers and and oxygen - patient is on home O2, continue use of home O2 and adjust as needed. - continue Levaquin Solu-Medrol and Tamiflu -chest x-ray negative (2) Influenza A: Code(s): J10.1 - Influenza due to other identified influenza virus with other respiratory manifestations Status: Acute Assessment and Plan: - continue Tamiflu continue cough suppressants and Decongestion - - lactic acid within normal limits (3) D-dimer, elevated: Code(s): R79.89 - Other specified abnormal findings of blood chemistry Status: Acute Assessment and Plan: V/Q scan completed On July 06, 2019 and it indicated Intermediate probability for pulmonary embolism with single small matched perfusion defect in the right lung corresponding to a radiographic opacity - D-dimer 1.69 - anticoagulant not needed determined by PCP - patient with a history of positive D-dimer (4) DVT prophylaxis: Code(s): Z29.9 - Encounter for prophylactic measures, unspecified Status: Acute Assessment and Plan: continue Lovenox (5) Diabetes mellitus: Code(s): E11.9 - Type 2 diabetes mellitus without complications Status: Acute Assessment and Plan: blood sugars elevated secondary to steroid use - will continue home medication - patient will discharge with a sliding scale until she has completed her prednisone (6) Peripheral edema: Code(s): R60.9 - Edema, unspecified Status: Acute Assessment and Plan: according to patient's son patient currently use Lasix t.i.d. for peripheral edema.. - patient with 2+ bilateral lower extremity edema and upper bilateral extremity edema (7) History of UTI: Code(s): Z87.440 - Personal history of urinary (tract) infections Status: Acute Assessment and Plan: patient's son noted that patient appeared slightly confused and has had a past history of UTIs and displayed confusion is with her UTIs. - UA negative DS: Summary Hospital Course Hospital Course: admission H&P 07/19/2019: Karley Kong is a 78 year old female resides at the [facility]. patient was admitted overnight for shortness of breath and dyspnea. Patient past medical history hypertension right forearm fracture diabetes to, COPD pulmonary fibrosis, peripheral edema according to son he believes that she has been diagnosed with congestive heart failure but cannot recall when the last echo was completed. Patient is palliative care he does not care to complete of echo to determine the status of her congestive heart failure. According to her son he was notified by staff the patient shortness of breath had increasing And worsened he also noted that it appeared that she had a bit of confusion yesterday. He also informed me that she has a history of UTIs, which causes her to be confused. she does have a history of chronic shortness of breath. she is being admitted for influenza A. and COPD exacerbation. Due to her GFR she will be given 30 mg of Tamiflu b.i.d.. she will also receive antibiotics and steroid due to her history of COPD. While in the ED a chest x-ray was completed results unremarkable, EKG shows sinus tach heart rate in 121. she also had an elevated D-dimer. According to son iin the past her D-dimer has been elevated.due to her allergic reaction to dyes she had a V/Q scan completed On July 06, 2019 and it indicated Intermediate probability for pulmonary embolism with single small matched perfusion defect in the right lung cor
[2019-07-20 12:39] LABS: Glucose Point of Care 369 (65-105)
--- NOTE | 2019-08-03 14:38 | PC.NURSE ---
Discharge call back [phone] Spoke with patient RN regaurding patient. No questions about discharge instructions there were written or given verbally over the phone in report.
== END 2019-07-20 14:10 | DRG 872 ==
LOC: CHSED 22:46 → CHS2ND 23:12
PROVIDERS: Nurse Practitioner; Admitting Provider Family Medicine; Emergency Provider Family Medicine; PCP Family Medicine; Visit Provider Family Medicine
DX: J44.1 Chronic obstructive pulmonary disease with (acute) exacerbation (principal); A41.2 Sepsis due to unspecified staphylococcus; J10.1 Influenza due to other identified influenza virus with other respiratory manifestations; E11.9 Type 2 diabetes mellitus without complications; R79.89 Other specified abnormal findings of blood chemistry; Z87.09 Personal history of other diseases of the respiratory system; I10 Essential (primary) hypertension
CPT/HCPCS: 36415; 71045; 80048; 80053; 81001; 82803; 83605; 83880; 84484; 85025; 85027; 85055; 85380; 87040; 87077; 87081; 87086; 87186; 87804; 93005; 94640; 96374; 99285; A9270; J1650; J1815; J1956; J2920; J2930; J7030

== ENCOUNTER 2020-05-20 11:31 | Emergency (ER) | payer MEDICARE, OTHER, SELFPAY ==
[2020-05-20 11:35] VITALS: BP 145/73; PULSE 107; RESP 22; TEMP 39.6; O2SAT 99
[2020-05-20] MEDS: methylPREDNISolone SOD SUCC 125 MG VIAL IV PUSH (12:01)
[2020-05-20] MEDS: SODIUM CHLORIDE 0.9% IV 1,000 ML 999 ML IV CONT (12:03)
--- NOTE | 2020-05-20 12:11 | ED.FEVER ---
HPI - Fever General Chief Complaint: Fever Stated Complaint: 79 YO Female, a resident of [facility] is a DNR comfort. She is being sent into ER for decline over last several days. Patient w/ h/o COVID + , tested on 05/08/20 (12 days ago) sent into ER for evaluation. Patient is a very poor historian offering no history, she moans. Related Data Home Medications Medication Instructions Recorded Confirmed Basaglar KwikPen U-100 Insulin 80 unit SUBCUT HS 07/04/19 05/20/20 Combivent Respimat 1 puff INHALATION Q6H PRN 07/04/19 05/20/20 Combivent Respimat 1 puff INHALATION QID 07/04/19 05/20/20 Daily Multivitamin 1 cap PO DAILY 07/04/19 05/20/20 Folbic RF 1 tablet PO DAILY 07/04/19 05/20/20 [place] Cough Drops 7.6 mg MUCOUS MEMBRANE Q2H PRN 07/04/19 05/20/20 Incruse Ellipta 62.5 mcg INHALATION DAILY 07/04/19 05/20/20 Senna Plus 1 tab-cap PO DAILY 07/04/19 05/20/20 acetaminophen 650 mg PO Q4H PRN 07/04/19 05/20/20 alum-mag hydroxide-simeth [Maalox 10 ml PO Q4H PRN 07/04/19 05/20/20 Advanced] aspirin [Adult Aspirin Regimen] 81 mg PO DAILY 07/04/19 05/20/20 atorvastatin 20 mg PO HS 07/04/19 05/20/20 bisacodyl 10 mg ID DAILY PRN 07/04/19 05/20/20 cholecalciferol (vitamin D3) 1,000 unit PO QAM 07/04/19 05/20/20 duloxetine 90 mg PO DAILY 07/04/19 05/20/20 fluticasone propion-salmeterol 1 inh INHALATION BID 07/04/19 05/20/20 [Advair Diskus] furosemide [Lasix] 80 mg PO BID 07/04/19 05/20/20 gabapentin 300 mg PO BID 07/04/19 05/20/20 insulin aspart U-100 [Novolog 16 unit SUBCUT AC 07/04/19 05/20/20 Flexpen U-100 Insulin] ipratropium-albuterol 3 ml INHALATION Q6H PRN 07/04/19 05/20/20 isosorbide mononitrate 30 mg PO DAILY 07/04/19 05/20/20 latanoprost 1 drp OPHTHALMIC (EYE) HS 07/04/19 05/20/20 levothyroxine 175 mcg PO DAILY 07/04/19 05/20/20 melatonin 3 mg PO HS PRN 07/04/19 05/20/20 memantine [Namenda] 5 mg PO BID 07/04/19 05/20/20 ondansetron 4 mg PO Q8H PRN 07/04/19 05/20/20 potassium chloride 20 meq PO DAILY 07/04/19 05/20/20 alum-mag hydroxide-simeth [Mylanta] 5 ml PO ONCE 05/20/20 05/20/20 artificial tears solution 1 drp OPHTHALMIC (EYE) DAILY 05/20/20 05/20/20 bisacodyl 5 mg PO HS 05/20/20 05/20/20 fentanyl 25 mcg TRANSDERMAL Q3-4D 05/20/20 05/20/20 multivitamin [Family Multivitamin] 1 tablet PO DAILY 05/20/20 05/20/20 olopatadine 2 drp OPHTHALMIC (EYE) ONCE 05/20/20 05/20/20 Allergies Allergy/AdvReac Type Severity Reaction Status Date / Time iodine Allergy Unknown Unknown Verified 07/04/19 16:09 losartan Allergy Unknown Unknown Verified 07/04/19 16:09 iohexol Allergy Flushing Verified 05/20/20 11:41 [From contrast - CT, X-RAY] mushroom Allergy Unknown Verified 05/20/20 11:41 shrimp Allergy Unknown Verified 07/04/19 16:09 Review of Systems Review of Systems: Narrative: Unable to assess as patient offers no history, complaints. ROS unobtainable: Yes unobtainable due to medical condition and unobtainable due to mental status PMFSH Past Medical History Medical History D-dimer, elevated Diabetes mellitus Histoplasmosis History of UTI Hypertension Peripheral edema Right forearm fracture Type 2 diabetes mellitus Surgical History Surgical History H/O pneumonectomy H/O: hysterectomy History of appendectomy Hx of cholecystectomy Family History Family History Father , father of histoplasmosis Hypertension Mother , mother had diabetes Hypertension Other Diabetes mellitus Social History Social History Years smoked: 1 Smoking status: Former smoker Tobacco type: cigarettes Second hand tobacco smoke exposure: Yes Alcohol intake: former Substance use: never Substance use type: does not use Gender identity (if verbalized by the patient): Female Spiritual
[2020-05-20 12:20] LABS: Basophils Absolute Auto 0.01 K/mm3 (0.00-0.10); Basophils Percent Auto 0.1 % (0.0-1.0); Eosinophils Absolute Auto 0.01 K/mm3 (0.02-0.50); Eosinophils Percent Auto 0.1 % (1.0-6.0); Hematocrit 40.4 % (35.0-42.0); Hemoglobin 12.6 g/dL (11.7-13.8); Immature Granulocyte Absolute 0.02 K/mm3 (0.00-0.00); Immature Granulocyte Percent A 0.2 % (0.0-0.0); Lymphocytes Absolute Auto 1.34 K/mm3 (1.10-4.50); Lymphocytes Percent Auto 16.5 % (18.0-42.0); Mean Corpuscular HGB Conc 31.2 g/dL (32.0-36.0); Mean Corpuscular Hemoglobin 30.1 pg (27.0-31.0); Mean Corpuscular Volume 96.7 fL (78.0-102.0); Mean Platelet Volume 12.5 fl (9.2-11.8); Monocytes Absolute Auto 0.73 K/mm3 (0.10-0.90); Neutrophils Percent Auto 74.1 % (50.0-70.0); Platelet Count Result 163 K/mm3 (150-420); Red Blood Count 4.18 M/mm3 (4.20-5.40); Red Cell Distribution Width 13.6 % (11.6-14.4); White Blood Count 8.1 K/mm3 (4.8-10.8)
[2020-05-20 12:21] LABS: Appearance Urine Clear (Clear); Bilirubin Urine Negative (Negative); Color Urine Yellow (Yellow); Glucose Urine UA Negative (Negative); Ketones Urine Negative (Negative); Leukocyte Esterase Ur Negative LEU/UL (Negative); Nitrate Urine Negative (Negative); Protein Urine Negative (Negative); pH Urine 7.5 (5.0-8.0)
[2020-05-20 12:30] LABS: Add Urine Microscopic? YES; Blood Urine Trace-Intact (Negative)
[2020-05-20 12:31] LABS: RBC Urine 0-2 /hpf (0-2)
[2020-05-20 12:32] LABS: Bacteria Urine None seen /hpf; Squamous Epithelial Cell Urine Rare /hpf (Few); WBC Urine 0-3 /hpf (0-3)
[2020-05-20 12:36] LABS: Alanine Aminotransferase 24 U/L (14-59); Albumin Level 3.2 g/dL (3.4-5.0); Alkaline Phosphatase 76 U/L (46-116); Anion Gap 3 mmol/L (8-16); Aspartate Amino Transferase 22 U/L (15-37); Bilirubin,Total 0.6 mg/dL (0.00-1.00); Blood Urea Nitrogen 19 mg/dL (7-18); CRP 0.7 mg/dL (0.0-0.9); Calcium 9.4 mg/dL (8.5-10.1); Carbon Dioxide 37 mmol/L (21-32); Chloride 104 mmol/L (98-108); Estimated Glomerular Filt Rate 43; Glucose 195 mg/dL (70-99); Osmolality Calculated 305 mOsm/kg (285-295); Potassium 3.7 mmol/L (3.5-5.1); Sodium 144 mmol/L (136-145); Total Protein 6.8 g/dL (6.4-8.2)
[2020-05-20 12:37] LABS: Prothrombin Time 10.9 Seconds (9.50-12.10)
[2020-05-20 12:41] LABS: Lactic Acid Reflex 1.3 mmol/L (0.4-2.0)
[2020-05-20 12:44] LABS: Influenza Control Valid (Valid)
[2020-05-20] MEDS: REMDESIVIR 200 MG/NS 250 ML 200 MG/250 ML BAG 250 MG IVPB (12:58)
[2020-05-20 13:30] VITALS: BP 129/63; PULSE 87; RESP 22; TEMP 38.4; O2SAT 99
[2020-05-20 13:45] LABS: Partial Thromboplastin Time 23.3 SEC (23.90-30.70)
--- NOTE | 2020-05-20 14:25 | PC.NURSE ---
PATIENT IS READY FOR DISCHARGE BACK TO [facility] - EMS WILL NOT BE AVAILABLE TO TRANSFER AT THIS TIME - PT CONDITION REMAINS STABLE BEFORE MENTIONED
[2020-05-20 15:01] VITALS: BP 130/73; PULSE 89; O2SAT 98
[2020-05-20 17:00] VITALS: BP 132/74
--- NOTE | 2020-05-20 20:13 | PC.NURSE ---
ERP SPOKE WITH AISHA HECTOR, SON OF PATIENT CONCERNING PLAN OF CARE [phone]
== END 2020-05-20 17:00 ==
PROVIDERS: Emergency Provider Family Medicine; PCP Family Medicine
DX: J20.9 Acute bronchitis, unspecified (principal); J44.9 Chronic obstructive pulmonary disease, unspecified; R79.1 Abnormal coagulation profile; E11.9 Type 2 diabetes mellitus without complications; I10 Essential (primary) hypertension; Z87.891 Personal history of nicotine dependence
CPT/HCPCS: 36415; 80053; 81001; 83605; 85025; 85610; 85730; 86140; 87040; 87077; 87081; 87186; 87804; 87880; 96361; 96365; 96367; 96375; 99283; 99284; J0131; J0696; J2930; J7030